=== PATIENT | female | born 1955 | race Caucasian/White ===

== ENCOUNTER 2022-07-05 05:49 | Observation (INO) ==
[~2022-07-05 05:49] MED LIST: Clindamycin 900 MG/D5W BAG 0 MG/0 ML BAG IVPB ONE; Famotidine IV 10 MG/ML 2 ml VIAL (20 mg) ONE
[2022-07-05] MEDS ORDERED: Lactated Ringers 1000 ml BAG 1,000 ML IV SCH ×2 (06:00→10:00)
[2022-07-05] MEDS ORDERED: Famotidine IV 10 MG/ML 2 ml VIAL (20 mg) IV ONE (06:00)
[2022-07-05] MEDS ORDERED: Buffered Lidocaine 1% SYRIN 1 ml INTRADERM ONE (06:00)
[2022-07-05] MEDS ORDERED: Lidocaine 2% PF 5 ML VIAL ONE (07:05)
[2022-07-05] MEDS ORDERED: Ketamine HCL 50 mg/ml 10 ml VIAL (500 MG) ONE (07:07)
[2022-07-05] MEDS ORDERED: Midazolam 2 mg/2 ml VIAL 1 mg/ml 2 ml VIAL (2 mg) ONE ×3 (07:38→09:08)
[2022-07-05] MEDS ORDERED: ceFAZolin VIAL VIAL ONE (07:48)
[2022-07-05] MEDS ORDERED: Phenylephrine 40 mcg/mL 10mL (400mcg) SYRINGE ONE (08:13)
[2022-07-05] MEDS ORDERED: Ondansetron 4 mg VIAL 2 MG/ML 2 ml VIAL ONE (08:27)
[2022-07-05] MEDS ORDERED: Naloxone 0.4 mg VIAL 0.4 mg/ml 1 ml VIAL IV PRN (08:45)
[2022-07-05] MEDS ORDERED: fentaNYL 100 mcg/2 ml 50 MCG/ML VIAL IV PRN (08:45)
[2022-07-05] MEDS ORDERED: HYDROmorphone 1 MG/1 ML SYRINGE IV PRN (08:45)
[2022-07-05] MEDS ORDERED: Lactulose 30 ml UDC PO PRN (09:01)
[2022-07-05] MEDS ORDERED: Morphine 2 MG/ML SYRINGE IV PRN (09:01)
[2022-07-05] MEDS ORDERED: Magnesium Hydroxide LIQ 30 ML UDC PO PRN (09:01)
[2022-07-05] MEDS ORDERED: Ondansetron 4 mg VIAL 2 MG/ML 2 ml VIAL IV PRN (09:01)
[2022-07-05] MEDS ORDERED: Ondansetron ODT 4 mg TAB 4 MG TAB PO PRN (09:01)
[2022-07-05] MEDS ORDERED: fentaNYL 100 mcg/2 ml 50 MCG/ML VIAL ONE (09:13)
[2022-07-05] MEDS ORDERED: Acetaminophen IV 1 GM/100ML 1,000 MG/100 ML BAG IV ONE (09:39)
[2022-07-05] MEDS ORDERED: ROPIVACAINE 5 MG/ML 30 ML BTL (0.5%) ONE (09:53)
[2022-07-05] MEDS ORDERED: Ropivacaine 5 MG/ML 20 ML VIAL 0.5% (100 MG) ONE (09:54)
[2022-07-05] MEDS ORDERED: Estradiol PATCH 0.05 MG/DAY PATCH TRANSDERM SCH (14:00)
[2022-07-05 14:50] VITALS: BP 134/77
[2022-07-05] MEDS ORDERED: ceFAZolin 1 GM ADVAN 1 GM in NS 0.9% 50 ML 50 ML IVPB SCH (16:00)
[2022-07-05] MEDS ORDERED: Magnesium Hydroxide LIQ 30 ML UDC PO SCH (21:00)
[2022-07-06] MEDS ORDERED: Vitamin THERAPEUTIC TAB PO SCH (09:00)
== END 2022-07-05 16:40 | disposition home or self-care (01) ==
LOC: OR 05:49 → SSU 05:49
PROVIDERS: ADMIT Orthopaedic Surgery Adult Reconstructive Orthopaedic Surgery; ATTEND Orthopaedic Surgery Adult Reconstructive Orthopaedic Surgery